=== PATIENT | female | born 2005 | race Two or more races ===

== ENCOUNTER 2024-04-29 21:31 | Emergency (ER) | payer OTHER ==
[~2024-04-29] VITALS: Ht 152.4 cm; Wt 45.5 kg
[2024-04-29] MEDS ORDERED: AMIT10TA7 PO (21:35)
[2024-04-29] MEDS ORDERED: BACL10TA PO (21:35)
[2024-04-29 21:57] LABS: COVID AG,FIA SOURCE NASAL SWAB
[2024-04-29 22:17] LABS: SARS-COV2 (COVID) ANTIGEN,FIA Negative (Negative)
[2024-04-29 22:19] LABS: INFLUENZA TYPE B NEGATIVE FOR TYPE B (NEGATIVE)
[2024-04-29 22:24] LABS: INFLUENZA TYPE A POSITIVE FOR TYPE A (NEGATIVE)
[2024-04-29 23:10] LABS: BASOPHILS % (AUTO) 0.2 % (0.0-2.0); EOSINOPHILS % (AUTO) 0.1 % (1.0-6.0); HEMATOCRIT 39.6 % (36-46); HEMOGLOBIN 13.3 g/dL (12.0-16.0); LYMPHOCYTES # (AUTO) 0.4 K/uL (1.0-4.8); LYMPHOCYTES % (AUTO) 6.5 % (22.0-44.0); MEAN CORPUSCULAR HEMOGLOBIN 31.1 pg (26.0-34.0); MEAN CORPUSCULAR HGB CONC 33.5 G/dL (31.0-37.0); MEAN CORPUSCULAR VOLUME 93 fL (80-100); MONOCYTES # (AUTO) 0.3 K/uL (0.1-1.0); MONOCYTES % (AUTO) 5.9 % (2.0-9.0); NEUTROPHILS # (AUTO) 4.7 K/uL (1.8-7.7); PLATELET COUNT (AUTO) 160 K/uL (150-450); RED BLOOD CELL COUNT(AUTO) 4.26 MIL/uL (4.00-5.20); RED CELL DISTRIBUTION WIDTH 13.1 % (11.5-14.5); WHITE BLOOD COUNT (AUTO) 5.4 K/uL (4.5-11.0)
[2024-04-29 23:14] LABS: NEUTROPHILS % (AUTO) 87.3 % (40.0-70.0)
[2024-04-29 23:21] LABS: ANION GAP 10 mmol/L (8-16); CALCIUM, TOTAL 8.8 mg/dL (8.8-10.5); CARBON DIOXIDE 25 mmol/L (22-29); CHLORIDE 98 mmol/L (98-107); CREATININE 0.52 mg/dL (0.60-1.30); GLOMERULAR FILTR. RATE CALC > 60 mL/min (>60); GLUCOSE,RANDOM 94 mg/dL (70-110); POTASSIUM 3.7 mmol/L (3.5-5.1); SODIUM SERUM 133 mmol/L (136-145); UREA NITROGEN, BLOOD 4 mg/dL (7-18)
[2024-04-29 23:30] LABS: LACTIC ACID 0.9 mmol/L (0.4-2.0)
[2024-04-29] MEDS: ONDANSETRON 4 MG TABLET PO ONE (23:30)
[2024-04-29] MEDS: SODIUM CHLORIDE 0.9% 1,000 ML IV ONE (23:31)
[2024-04-29] MEDS: ACETAMINOPHEN 325 MG TABLET PO ONE (23:31)
[2024-04-29 23:56] VITALS: BP 125/77; PULSE 113; RESP 18; TEMP 99.1; O2SAT 99
[2024-04-30] MEDS ORDERED: OSEL75CA45 PO (00:48)
== END 2024-04-30 01:16 | disposition home or self-care (01) ==
LOC: EMS 21:31
DX: J11.1 Influenza due to unidentified influenza virus with other respiratory manifestations (principal); Z79.899 Other long term (current) drug therapy; Z20.822 Contact with and (suspected) exposure to COVID-19
CPT/HCPCS: 99284; 96360; 87426; 80048; 83605; 84703; 85025; 87804; 36415; 93005; Q0162; J7030

== ENCOUNTER 2024-10-13 21:18 | Emergency (ER) | payer OTHER ==
[~2024-10-13] VITALS: Ht 144.8 cm; Wt 41.8 kg
[~2024-10-13 21:18] MED LIST: AMIT10TA14 PO; BACL10TA PO; OSEL75CA45 PO
[2024-10-13 21:31] VITALS: BP 108/76; PULSE 100; RESP 18; TEMP 98.2; O2SAT 100
[2024-10-13 21:50] LABS: PLATELET COUNT (AUTO) 206 K/uL (150-450); RED BLOOD CELL COUNT(AUTO) 4.52 MIL/uL (4.00-5.20); RED CELL DISTRIBUTION WIDTH 13.9 % (11.5-14.5); WHITE BLOOD COUNT (AUTO) 8.7 K/uL (4.5-11.0)
[2024-10-13 21:57] LABS: CALCIUM, TOTAL 8.8 mg/dL (8.8-10.5); CREATININE 0.47 mg/dL (0.60-1.30); GLOMERULAR FILTR. RATE CALC > 60 mL/min (>60); GLUCOSE,RANDOM 105 mg/dL (70-110); SODIUM SERUM 137 mmol/L (136-145); UREA NITROGEN, BLOOD 6 mg/dL (7-18)
[2024-10-13] MEDS: ONDANSETRON 4 MG TABLET PO ONE (23:42)
[2024-10-13] MEDS ORDERED: ONDA-104 PO (23:45)
== END 2024-10-13 23:50 | disposition home or self-care (01) ==
LOC: EMS 21:27
DX: O21.9 Vomiting of pregnancy, unspecified (principal); N89.8 Other specified noninflammatory disorders of vagina; Z79.899 Other long term (current) drug therapy; Z3A.01 Less than 8 weeks gestation of pregnancy
CPT/HCPCS: 99283; 80048; 84702; 85025; 36415; Q0162